=== PATIENT | female | born 1980 | race Caucasian/White ===

== ENCOUNTER 2022-06-07 13:45 | Emergency (ER) | payer OTHER, SELFPAY ==
[2022-06-07 14:26] VITALS: BP 131/77; PULSE 96; RESP 20; TEMP 36.8; O2SAT 100; BMI 25.4
[2022-06-07 15:47] VITALS: PULSE 80
--- NOTE | 2022-06-07 16:39 | ED_ITS ---
HPI - Extremity Injury (Upper) <Britt Sabillon PA-C - Last Filed: 06/07/22 17:03> General Chief Complaint: Extremity Injury, Upper Stated Complaint: rt wrist pain and swelling Time Seen by Provider: 06/07/22 15:12 Source: patient Mode of arrival: Ambulatory History of Present Illness HPI narrative: Patient is a 41-year-old female presenting for evaluation of swelling of her right forearm since yesterday. She notes that it started hurting 3 days ago upon waking with no changes to how it looked. She does not have any known exposures or bites. Two days ago, she noted increased swelling and increased pain just below her hand over her wrist. Denies fever or chills or red lines, or swelling in her armpits. Yesterday and today, she has noted that it seems to be improving. She says she has washed with soap and water. She denies allergies to medications. She does report a history of smoking, and denies illegal drug use. She states she currently does not have a PCP and she just moved here from [place]. Related Data Previous Rx's Medication Instructions Recorded sulfamethoxazole 800 1 tab PO BID 7 days #14 tabs 06/07/22 mg-trimethoprim 160 mg tablet (Bactrim DS) Allergies Allergy/AdvReac Type Severity Reaction Status Date / Time No Known Drug Allergies Allergy Verified 06/07/22 14:32 Review of Systems <Britt Sabillon PA-C - Last Filed: 06/07/22 17:03> Review of Systems Narrative: Per HPI Patient History <Britt Sabillon PA-C - Last Filed: 06/07/22 17:03> Social History Smoking Status: Current every day smoker Smoking Status: Current every day smoker tobacco type: cigarettes alcohol intake frequency: holidays/special occasions only Substance Use Type: marijuana Exam <Britt Sabillon PA-C - Last Filed: 06/07/22 17:03> Narrative Exam Narrative: GENERAL: 41 year old patient appears stated age. Well-developed patient, in no distress. HEAD: Atraumatic. Normocephalic. EYES: No scleral icterus. No injection or drainage. CARDIOVASCULAR: Regular rate and rhythm without murmurs, gallops, or rubs. RESPIRATORY: Clear to auscultation. Breath sounds equal bilaterally. No wheezes, rales, or rhonchi. EXTREMITIES: Edema over right lateral wrist, no fluctuance or induration noted. She is tender to palpation over areas of erythema. Erythema extends 3-1/2 cm distally with two barely raised areas roughly 1 cm across. There is no red line. 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 She has no pain with movement of her fingers. Right radial pulse is 2 . BACK: Nontender without deformity or crepitance. No flank tenderness. NEURO: AOx3. SKIN: see extremity Initial Vital Signs Initial Vital Signs: Vital Signs Temperature 98.2 F 06/07/22 14:26 Pulse Rate 96 H 06/07/22 14:26 Respiratory Rate 20 06/07/22 14:26 Blood Pressure 131/77 06/07/22 14:26 Pulse Oximetry 100 06/07/22 14:26 Oxygen Delivery Method 06/07/22 14:26 <DO Shameka Torres Last Filed: 06/07/22 17:48> Initial Vital Signs Initial Vital Signs: Vital Signs Temperature 98.2 F 06/07/22 14:26 Pulse Rate 96 H 06/07/22 14:26 Respiratory Rate 20 06/07/22 14:26 Blood Pressure 131/77 06/07/22 14:26 Pulse Oximetry 100 06/07/22 14:26 Oxygen Delivery Method 06/07/22 14:26 Course <Britt Sabillon PA-C - Last Filed: 06/07/22 17:03> Vital Signs Vital signs: Vital Signs - 8 hr 06/07/22 14:26 06/07/22 15:47 Temperature 98.2 F Pulse Rate 96 H Pulse Rate [Right Radial] 80 Respiratory Rate 20 Blood Pressure 131/77 Pulse Oximetry 100 Oxygen Delivery Method Room Air <DO Shameka Torres Last Filed: 06/07/22 17:48> Vital Signs Vital signs: Vital Signs - 8 hr 06/07/22 14:26 06/07/22 15:47 Temperature 98.2 F Pulse Rate 96 H Pulse Rate [Right Radial] 80 Respiratory Rate 20 Blood Pressure 131/77 Pulse Oximetry 100 Oxygen Delivery Method Room Air MDM - Extremity Injury (Upper) <Britt Sabillon PA-C - Last Filed: 06/07/22 17:03> [facility] Narrative Medical decision making narrative: Patient is a 41-year-old female presenting for signs of probable bacterial cellulitis over her right wrist. Systemically her vital signs are stable and she notes no fever or chills. She currently smokes but denies illegal drug use. She does not currently have a PCP. I recommend that she take antibiotics to treat this. I have prescribed Bactrim by mouth for 7 days. We discussed precautions for return for evaluation including worsening erythema, systemic symptoms such as fever chills, red lining or other concerning symptoms. I chose Bactrim for its coverage of MRSA organisms. Differentials include cellulitis, MRSA infection, spider bite. I recommend if possible she follow-up in primary care clinic for re-evaluation in a week to ensure infection is receding. Discharge Plan Departure Patient Disposition: Home Clinical Impression: Cellulitis of forearm, right Activity Restrictions/Additional Instructions: We discussed that your condition is likely due to a bacterial infection of the right wrist. We have printed a prescription for Bactrim for you to take twice a day for 7 days. We have discussed care for this area including washing with soap and water and monitoring for resolution of swelling and erythema. Please be re-evaluated for further treatment if swelling and erythema increases beyond current erythema and swelling, if a red line appears, or if fever or chills begin or if the function of your right hand is affected in any way. Prescriptions: New sulfamethoxazole-trimethoprim [Bactrim DS] 800-160 mg tablet 1 tab PO BID 7 Days Qty: 14 0RF Stand Alone Forms: Patient Portal/API <Mark Maharaj DO - Last Filed: 06/07/22 17:48> Cosign ED Attending Cosignature Attestation: Dr Maharaj Co-Sign Statement: I was available for consultation during this patient's emergency department visit. This chart is signed by myself for administrative purposes only. I did not have direct contact with this patient during this visit. They were seen independently by the APC.
== END 2022-06-07 16:52 | disposition home or self-care (01) ==
PROVIDERS: Emergency Provider Physician Assistant
DX: L03.113 Cellulitis of right upper limb (principal)
CPT/HCPCS: 99281

== ENCOUNTER 2022-07-17 11:47 | Emergency (ER) | payer OTHER, SELFPAY ==
[2022-07-17] VITALS (19 sets, daily range): BP systolic 98–140; BP diastolic 59–89; PULSE 93–119; RESP 14–24; TEMP 37.4; O2SAT 98–100; BMI 26.4
[2022-07-17 12:21] LABS: Add Manual Diff / Slide Review YES; Hematocrit 39.7 % (36-46); Hemoglobin 13.4 g/dL (12.0-16.0); Mean Corpuscular HGB Conc 33.8 % (30-36); Mean Corpuscular Hemoglobin 31.2 PG (26-34); Mean Corpuscular Volume 92.2 fL (80-100); Platelet Count 357 X10^3/uL (150-400); Red Cell Distribution Width 13.5 % (11.6-14.8); White Blood Cell Count 25.5 X10^3/uL (4.5-11.0)
[2022-07-17 12:29] LABS: Alanine Aminotransferase 50 IU/L (<35); Albumin 4.4 g/dL (3.5-5.0); Albumin Globulin Ratio 1.3 (1.0-2.8); Alkaline Phosphatase 98 U/L (38-126); Aspartate Aminotransferase 30 IU/L (14-36); Bilirubin Total 0.9 mg/dL (0.2-1.3); Blood Urea Nitrogen 8 mg/dL (7-17); Calcium 8.8 mg/dL (8.4-10.2); Carbon Dioxide 24 mmol/L (22-32); Chloride 103 mmol/L (98-107); Estimated Glomerular Filt Rate > 60 mL/min (>60); Globulin 3.3 g/dL (1.7-4.1); Glucose 102 mg/dL (70-100); HEMOLYSIS 15 (0-50); Lipase 49 U/L (23-300); Potassium 3.6 mmol/L (3.4-5.1); Sodium 135 mmol/L (137-145); Total Protein 7.7 g/dL (6.3-8.2)
[2022-07-17 12:41] LABS: Neutrophils Absolute Manual 22950 /uL (3000-5900); Total Cells Counted 100
[2022-07-17 12:42] LABS: RBC Morphology Normal Morphology
[2022-07-17 13:14] LABS: Lactate (Lactic Acid) 0.8 mmol/L (0.7-2.1)
--- NOTE | 2022-07-17 13:15 | DI.CT.S_ITS ---
PROCEDURE: CT ABDOMEN PELVIS W CON INDICATIONS: abd pain, had recent CT TECHNIQUE: After the administration of intravenous contrast, axial sections acquired from the lung bases to the pubic symphysis. Coronal and sagittal reformats were performed. For radiation dose reduction, the following was used: automated exposure control, adjustment of mA and/or kV according to patient size. COMPARISON: None. FINDINGS: Image quality: Excellent. Lung bases: Unremarkable. Heart: No significant findings. ABDOMEN: Liver: Unremarkable. Gallbladder: Unremarkable. Biliary ducts: Unremarkable. Pancreas: Unremarkable. Spleen: Unremarkable. Adrenal Glands: Unremarkable. Kidneys and Ureters: Unremarkable. Stomach and Bowel: Stomach, small bowel loops, and colon are unremarkable. Appendix is normal. Peritoneum: Significant fat stranding in the right lower quadrant. Ventral Wall: No hernias. Abdominal Nodes: No retroperitoneal or mesenteric adenopathy by size criteria. Vessels: Aorta and inferior vena cava are normal in size. PELVIS: Pelvic Organs: Right-sided corpus luteum. Bladder: Moderate wall thickening. Pelvic Nodes: No enlarged lymph nodes. Miscellaneous: No hernias are seen. Bones: Unremarkable. IMPRESSION: 1. Inflammatory changes in the right lower quadrant, centered in the adnexa. Normal appendix. A right-sided corpus luteum is present within this region. Pelvic inflammatory disease is not entirely excluded based on this appearance. Consider pelvic ultrasound. 2. Bladder wall thickening, which may indicate cystitis or be reactive. Dictated by: Marc Campa M.D. on 07/17/2022 at 14:45 Approved by: Marc Campa M.D. on 07/17/2022 at 14:55
--- NOTE | 2022-07-17 13:17 | PC.NURSE ---
Addendum entered by Tito Rock R.N. 07/17/22 13:41: Right wrist is slightly red, cool to the touch, with a small raised bump. No streaking. This is the site pt reports having the infection. Original Note: Pt reports recent relapse of meth use one month ago and recent infection due to injecting.
[2022-07-17] MEDS: KETOROLAC 30 MG/ML VIAL 15 MG IV (13:24)
[2022-07-17] MEDS: SODIUM CHLORIDE 0.9% 1,905.09 ML 635.03 ML IV (13:25)
[2022-07-17 13:31] LABS: Procalcitonin 0.33 ng/mL (<0.5)
[2022-07-17 13:36] LABS: Pregnancy Test Serum,Qual Negative (Negative)
--- NOTE | 2022-07-17 13:56 | ED.ABDPAIN ---
HPI - Abdominal Pain General Chief Complaint: Abdominal Pain Stated Complaint: t-14 abdominal pain/vaginal bleeding Time Seen by Provider: 07/17/22 13:05 Source: patient Mode of arrival: Ambulatory Limitations: no limitations History of Present Illness HPI narrative: This is a 41-year-old female with history of methamphetamine abuse, who presents with complaint of abdominal pain. Patient states she is been having generalized abdominal pain throughout for the past 1-2 weeks. She states been somewhat intermittent. She denies fevers or chills. She denies chest pain or shortness of breath. She denies nausea or vomiting. She states she has been constipated but did have a small bowel movement today. Patient states she is had some dysuria but describes it sometimes more as pain in her upper abdomen when she bears down to urinate, she denies frequency or urgency. She states she had her menses the beginning of July. She had some additional vaginal bleeding the last couple days which he states has been more light and spotting with some small clots. She denies any new discharge or odor. Patient states no black or bloody stools appreciated. She has had a prior , she is had prior tubal ligation. She denies other surgeries. She denies any prescription medications. She does use tobacco daily. She denies alcohol. She does state she used methamphetamine she has not injected on states she had an infection in her right wrist where she injected she was seen here got oral antibiotics and it improved there still a slight lump but that the redness has gone away and it is no longer tender or painful. Related Data Allergies Allergy/AdvReac Type Severity Reaction Status Date / Time No Known Drug Allergies Allergy Verified 07/17/22 11:53 Review of Systems Review of Systems ROS Unobtainable: All systems reviewed & are unremarkable except as noted in HPI and below Patient History Social History Smoking Status: Current every day smoker Smoking Status: Current every day smoker tobacco type: cigarettes alcohol intake frequency: holidays/special occasions only Substance Use Type: marijuana Exam Narrative Exam Narrative: GEN: Nontoxic-appearing female, alert and oriented x 3, patient appears to be in mild distress. HEENT: Atraumatic, pupils are equal round reactive to light, extraocular movements are intact, nares are clear, Throat is clear without any exudates, erythema, tonsillar enlargement or uvular deviation HEART: Slightly tachycardic but Regular rate and rhythm without murmur, clicks, rubs. pulses are equal in upper and lower extremities LUNGS:Lungs clear to auscultation, no wheezes, rales, crackles, chest moves symmetrically, no tachypnea accessory muscle use ABD:bowel sounds normal, soft, generalized tenderness, no guarding, rebound, rigidity, no masses noted, no hepatosplenomegaly, slightly distended. :No CVA tenderness. Female: external vaginal examl normal, scant red vaginal bleeding, no discharge, no cervical motion tenderness, normal speculum exam, no adnexal tenderness/mass. Bimanual exam patient has tenderness suprapubically but not enlarged uterus. Non-gravid. MSCL: Non-tender, no muscle atrophy, muscles strength 5/5 upper and lower extremities, full range of motion NEURO:CN 2-12 intact, sensation normal SKIN: No rash, erythema or other skin changes. Patient showed me the site of her prior infection was there is a slight fullness of the skin but it is nontender no erythema, not indurated or fluctuant. Initial Vital Signs Initial Vital Signs: Vital Signs Temperature 99.3 F 07/17/22 11:53 Pulse Rate 119 H 07/17/22 11:53 Respiratory Rate 17 07/17/22 11:53 Blood Pressure 118/70 07/17/22 11:53 Pulse Oximetry 99 07/17/22 11:53 Oxygen Delivery Method Room Air 07/17/22 11:53 Course Orders Ordered: Discontinued Medications Azithromycin (Azithromycin 250 Mg Tablet) 1,000 mg PO NOW ONE Stop: 07/17/22 17:13 Last Admin: 07/17/22 17:18 Dose: 1,000 mg Documented By: JOHN Sodium Chloride (Normal Saline 0.9%) 1,905.09 mls @ 635.03 mls/hr 30 ml/kg infuse over 3 hr (1905.09 ml) IV NOW ONE Stop: 07/17/22 16:13 Last Infusion: 07/17/22 15:59 Dose: 0 mls/hr Documented By: Admin: 07/17/22 13:25 Dose: 635.03 mls/hr Documented By: JOHN Ceftriaxone Sodium 2,000 mg/ (Sodium Chloride) 100 mls @ 200 mls/hr IV NOW ONE Stop: 07/17/22 15:37 Last Infusion: 07/17/22 16:21 Dose: 0 mls/hr Documented By: Admin: 07/17/22 15:43 Dose: 200 mls/hr Documented By: OJHN Ceftriaxone Sodium 1,000 mg/ (Sodium Chloride) 100 mls @ 200 mls/hr IV NOW ONE Stop: 07/17/22 17:13 Last Admin: 07/17/22 17:16 Dose: Not Given Documented By: JOHN Ketorolac Tromethamine (Ketorolac 30 Mg/Ml Vial) 15 mg IV NOW ONE Stop: 07/17/22 13:15 Last Admin: 07/17/22 13:24 Dose: 15 mg Documented By: JOHN Ondansetron HCl (Ondansetron 4 Mg/2 Ml Inj) 4 mg IV NOW PRN PRN Reason: Nausea And Vomiting Vital Signs Vital signs: Vital Signs - 8 hr 07/17/22 11:53 07/17/22 12:31 07/17/22 13:00 Temperature 99.3 F Pulse Rate 119 H 117 H 119 H Respiratory Rate 17 Blood Pressure 118/70 Pulse Oximetry 99 99 100 Oxygen Delivery Method Room Air 07/17/22 13:01 07/17/22 13:01 07/17/22 13:30 Temperature Pulse Rate 105 H 110 H Respiratory Rate 17 19 Blood Pressure 114/74 Pulse Oximetry 99 100 Oxygen Delivery Method 07/17/22 13:36 07/17/22 13:36 07/17/22 13:45 Temperature Pulse Rate 109 H Respiratory Rate 14 Blood Pressure 122/78 116/75 Pulse Oximetry 99 Oxygen Delivery Method 07/17/22 13:45 07/17/22 14:00 07/17/22 14:00 Temperature Pulse Rate 110 H 103 H Respiratory Rate Blood Pressure 111/66 Pulse Oximetry 99 100 Oxygen Delivery Method 07/17/22 14:30 07/17/22 14:30 07/17/22 14:45 Temperature Pulse Rate 102 H Respiratory Rate 24 Blood Pressure 130/79 132/81 Pulse Oximetry 100 Oxygen Delivery Method 07/17/22 14:45 07/17/22 15:00 07/17/22 15:00 Temperature Pulse Rate 97 H 94 H Respiratory Rate 24 18 Blood Pressure 140/89 Pulse Oximetry 100 100 Oxygen Delivery Method 07/17/22 15:15 07/17/22 15:15 07/17/22 15:30 Temperature Pulse Rate 93 H Respiratory Rate 18 Blood Pressure 137/86 139/86 Pulse Oximetry 100 Oxygen Delivery Method 07/17/22 15:30 07/17/22 15:50 07/17/22 15:50 Temperature Pulse Rate 97 H 103 H Respiratory Rate 22 24 Blood Pressure 117/72 Pulse Oximetry 100 99 Oxygen Delivery Method 07/17/22 16:00 07/17/22 16:00 07/17/22 16:15 Temperature Pulse Rate 101 H 103 H Respiratory Rate 20 22 Blood Pressure 107/68 Pulse Oximetry 98 Oxygen Delivery Method 07/17/22 16:15 07/17/22 16:30 07/17/22 16:30 Temperature Pulse Rate 93 H Respiratory Rate 15 Blood Pressure 109/72 98/59 L Pulse Oximetry 99 Oxygen Delivery Method 07/17/22 16:38 07/17/22 16:38 07/17/22 16:45 Temperature Pulse Rate 96 H Respiratory Rate 19 Blood Pressure 106/67 119/75 Pulse Oximetry 99 Oxygen Delivery Method 07/17/22 16:45 Temperature Pulse Rate 93 H Respiratory Rate 18 Blood Pressure Pulse Oximetry 99 Oxygen Delivery Method MDM - Abdominal Pain Lab Data 07/17/22 12:12 07/17/22 12:12 Labs: Lab Results 07/17/22 07/17/22 07/17/22 Range/Units 12:12 12:12 12:12 WBC 25.5 H (4.5-11.0) X10^3/uL RBC 4.30 (4.0-5.2) X10^6/uL Hgb 13.4 (12.0-16.0) g/dL Hct 39.7 (36-46) % MCV 92.2 (80-100) fL MCH 31.2 (26-34) PG MCHC 33.8 (30-36) % RDW 13.5 (11.6-14.8) % Plt Count 357 (150-400) X10^3/uL Neut % (Auto) Not Reportable Lymph % (Auto) Not Reportable Leslie % (Auto) Not Reportable Eos % (Auto) Not Reportable Baso % (Auto) Not Reportable Lymph # (Auto) Not Reportable Leslie # (Auto) Not Reportable Baso # (Auto) Not Reportable Total Counted 100 Seg Neutrophils % 85.0 H (38-70) % Band Neutrophils % 5.0 (3-7) % Lymphocytes % (Manual) 7.0 L (25-45) % Monocytes % (Manual) 3.0 (2-11) % Neutrophils # (Manual) 64010 H (6623-6391) /uL RBC Morphology Normal morphology Sodium 135 L (137-145) mmol/L Potassium 3.6 (3.4-5.1) mmol/L Chloride 103 (98-107) mmol/L Carbon Dioxide 24 (22-32) mmol/L BUN 8 (7-17) mg/dL Creatinine 0.42 L (0.52-1.04) mg/dL Estimated GFR > 60 (>60) mL/min BUN/Creatinine Ratio 19.0 (6-22) Glucose 102 H (70-100) mg/dL Lactate 0.8 (0.7-2.1) mmol/L Calcium 8.8 (8.4-10.2) mg/dL Total Bilirubin 0.9 (0.2-1.3) mg/dL AST 30 (14-36) IU/L ALT 50 H (<35) IU/L Alkaline Phosphatase 98 (38-126) U/L Total Protein 7.7 (6.3-8.2) g/dL Albumin 4.4 (3.5-5.0) g/dL Globulin 3.3 (1.7-4.1) g/dL Albumin/Globulin Ratio 1.3 (1.0-2.8) Lipase 49 (23-300) U/L Procalcitonin (<0.5) ng/mL Serum , Qual (Negative) Urine RBC (0-5/HPF) Urine WBC (0-5/HPF) Ur Squamous Epith Cells (0-5/HPF) Urine Bacteria (None) Ur Culture Indicated? 07/17/22 07/17/22 07/17/22 Range/Units 12:12 12:12 15:49 WBC (4.5-11.0) X10^3/uL RBC (4.0-5.2) X10^6/uL Hgb (12.0-16.0) g/dL Hct (36-46) % MCV (80-100) fL MCH (26-34) PG MCHC (30-36) % RDW (11.6-14.8) % Plt Count (150-400) X10^3/uL Neut % (Auto) Lymph % (Auto) Leslie % (Auto) Eos % (Auto) Baso % (Auto) Lymph # (Auto) Leslie # (Auto) Baso # (Auto) Total Counted Seg Neutrophils % (38-70) % Band Neutrophils % (3-7) % Lymphocytes % (Manual) (25-45) % Monocytes % (Manual) (2-11) % Neutrophils # (Manual) (1704-5411) /uL RBC Morphology Sodium (137-145) mmol/L Potassium (3.4-5.1) mmol/L Chloride (98-107) mmol/L Carbon Dioxide (22-32) mmol/L BUN (7-17) mg/dL Creatinine (0.52-1.04) mg/dL Estimated GFR (>60) mL/min BUN/Creatinine Ratio (6-22) Glucose (70-100) mg/dL Lactate (0.7-2.1) mmol/L Calcium (8.4-10.2) mg/dL Total Bilirubin (0.2-1.3) mg/dL AST (14-36) IU/L ALT (<35) IU/L Alkaline Phosphatase (38-126) U/L Total Protein (6.3-8.2) g/dL Albumin (3.5-5.0) g/dL Globulin (1.7-4.1) g/dL Albumin/Globulin Ratio (1.0-2.8) Lipase (23-300) U/L Procalcitonin 0.33 (<0.5) ng/mL Serum , Qual Negative (Negative) Urine RBC 1-5/hpf (0-5/HPF) Urine WBC 1-5/hpf (0-5/HPF) Ur Squamous Epith Cells 1-5 /hpf (0-5/HPF) Urine Bacteria None seen (None) Ur Culture Indicated? Cult not indicated Point of care testing: Urine Dip Bedside Urine Glucose Negative Bedside Urine Bilirubin - Negative Bedside Urine Ketone +/- 5 Urine Specific Blodgett 1.005 Bedside Urine Occult Blood ++ Bedside Urine pH 6.0 Bedside Urine Protein - Negative Bedside Urine Urobilinogen - Negative Bedside Urine Nitrite - Negative Bedside Urine Leukocytes - Negative Esterase Imaging Data CT scan - abdomen/pelvis: Radiologist's Impression: Close Abdomen/Pelvis CT (Signed) Marc Campa - 07/17/22 Launch?[address] [address] [address] Scan Report Signed Patient: Terrie Leon MR#: [id number] : 1980 Acct:[id number] Age/Sex: 41 / F Date of Service: 07/17/22 Loc: ED Accession Number: [id number] ?? Procedure: CT abdomen pelvis w con Ordering Provider: Miranda Vincent D.O. PROCEDURE:? CT ABDOMEN PELVIS W CON ? INDICATIONS:? abd pain, had recent CT ? TECHNIQUE:? After the administration of intravenous contrast, axial sections acquired from the lung bases to the pubic symphysis.? Coronal and sagittal reformats were performed.? For radiation dose reduction, the following was used:? automated exposure control, adjustment of mA and/or kV according to patient size.? ? COMPARISON:? None. ? FINDINGS:? Image quality:? Excellent.? ? Lung bases:? Unremarkable. Heart:? No significant findings. ? ABDOMEN: Liver:? Unremarkable.? ? Gallbladder:? Unremarkable.? ? Biliary ducts:? Unremarkable.? ? Pancreas:? Unremarkable.? ? Spleen:? Unremarkable.? ? Adrenal Glands:? Unremarkable.? ? Kidneys and Ureters:? Unremarkable.? ? ? Stomach and Bowel:? Stomach, small bowel loops, and colon are unremarkable.? Appendix is normal. Peritoneum:? Significant fat stranding in the right lower quadrant. ? Ventral Wall: ? No hernias.? Abdominal Nodes:? No retroperitoneal or mesenteric adenopathy by size criteria.? Vessels:? Aorta and inferior vena cava are normal in size.? ? PELVIS: Pelvic Organs:? Right-sided corpus luteum.? ? Bladder:? Moderate wall thickening. Pelvic Nodes: No enlarged lymph nodes.? Miscellaneous: No hernias are seen. ? ? ? Bones:? Unremarkable.? IMPRESSION:? 1. Inflammatory changes in the right lower quadrant, centered in the adnexa.? Normal appendix.? A right-sided corpus luteum is present within this region.? Pelvic inflammatory disease is not entirely excluded based on this appearance.? Consider pelvic ultrasound. 2. Bladder wall thickening, which may indicate cystitis or be reactive.? ? Dictated by: Marc Campa M.D. on 07/17/2022 at 14:45 ? ? Approved by: Marc Campa M.D. on 07/17/2022 at 14:55?? [facility] Narrative Medical decision making narrative: This is a 41-year-old female who presents with complaint of generalized abdominal pain intermittently for the past 2 weeks. She is been afebrile no nausea or vomiting. She does note some recent dysuria and vaginal bleeding. Patient has generalized abdominal pain on examination not really localized. She is slightly distended. She does have risk factors of prior , tubal ligation and uses injection drugs including methamphetamine. She is tachycardic, not hypotensive not febrile 99% room air. She would a workup at [facility] on 07/06/2022 for abdominal pain and at that time had changes consistent with ileus no obstruction. She was tachycardic during her stay up to 130. She would a white count of 20 with potassium of 3.3, glucose of 111 bilirubin was normal with an AST of 49 and otherwise negative LFTs and CMP. Serum HCG was negative at that time. UA showed 6-10 wbc's but moderate squamous epithelials and was positive for amphetamines. Patient had dose of Toradol here which has been helpful for her pain has not resolved it. She is receiving a 30 cc/kilos bolus although tachycardia could be secondary to recent amphetamine use as well. Workup today is remarkable for leukocytosis, has trended upwards. Sodium 135 normal creatinine electrolytes glucose is 102 with an ALT of 50 AST total bili and lipase are negative. Serum is negative with a negative procalcitonin. Attempting to get urine sample and patient is receiving fluids. CT abdomen pelvis was obtained, plan for pelvic exam and possible ultrasound if CT is negative. CT shows some inflammation around the adnexa appendix appears to be normal. Patient also has some changes consistent with cystitis. Ultrasound shows possible hemorrhagic cyst no signs of torsion. Patient does not have changes consistent with tubo-ovarian abscess. Suspect patient's pain is secondary to irritation for blood in the pelvis. UA shows no signs of infection. Pelvic exam was performed, cultures were obtained. Patient does not have a lot of discharge but does note that she is been sexually active recently without protection. Discussed we can wait for cultures are go and treat she does have a white count she is tender suprapubically although not a lot of cervical tenderness. Patient elects for treatment she prefers medication to be given here she is not sure she has enough money for outpatient antibiotics. We will cover with Rocephin and azithromycin. Discharge Plan Departure Patient Disposition: Home Clinical Impression: Ovarian cyst rupture, Cervicitis Instructions: DI for Ovarian Cyst Activity Restrictions/Additional Instructions: Your workup today does show a ruptured, presumed hemorrhagic ovarian cyst. This can be causing her pain today. We did cover you for bacterial infections/cervicitis. Your cultures are pending if these show that there is antibiotics do not completely cover you you will be contacted for additional medication. Please return for fevers, new or worsening abdominal back or flank pain, persistent vomiting, passing out, black or bloody stools or other new or concerning changes. Stand Alone Forms: Patient Portal/API
--- NOTE | 2022-07-17 15:35 | DI.US.S_ITS ---
PROCEDURE: US PELVIC COMPLETE INDICATIONS: pelvic pain TECHNIQUE: Real-time scanning was performed of the pelvic organs, with image documentation. Additional endovaginal scanning was necessary due to incomplete visualization of the adnexal and endometrial structures by transabdominal scanning. COMPARISON: [facility], CT, CT ABDOMEN PELVIS W CON, 07/17/2022, 14:19. FINDINGS: Uterus: Uterus is anteverted and normal in size at 4.1 x 6.6 x 8.9 cm. The myometrium is homogeneous. The endometrium measures 4.6 mm combined thickness. No fibroid is found. Ovaries: The right ovary measures 2.7 x 3.1 x 2.8 cm, with a calculated ovarian volume of 12.1 cc. The right ovary contains a presumed hemorrhagic ovarian cyst measuring approximately 2.7 x 2.8 x 3.1 cm in maximal dimensions. There is no concern for presence of ovarian torsion. The left ovary could not be seen due to bowel gas. Less than 12 follicles can be seen in right ovary ovary. No adnexal masses are seen. Other: No pathologic free abdominal or pelvic fluid. IMPRESSION: Nonvisualization of the left ovary due to bowel gas. Presumed hemorrhagic ovarian cyst right ovary, without suspicion for ovarian torsion superimposed. Normal appearing uterus and endometrial lining. We strive to produce accurate, complete, and clear reports of imaging services. To assist us in improving patient care, this report was composed using standard report templates and voice recognition software. Therefore, it may contain abnormal punctuation, insertions and/or omissions. Occasional wrong-word or sound-alike substitutions may occur. Though we review the report and make efforts to correct it, we do recommend that the report be read carefully in proper context to recognize any text inaccuracies. Dictated by: Singh Downing M.D. on 07/17/2022 at 16:34 Approved by: Singh Downing M.D. on 07/17/2022 at 16:38
[2022-07-17] MEDS: cefTRIAXone 2,000 MG in SODIUM CHLORIDE 0.9% 100 ML 200 MG IV (15:43)
[2022-07-17 16:14] LABS: Bacteria Urine None Seen; Culture Indicated Urine Cult Not Indicated; RBC Urine 1-5/HPF (0-5/HPF); Squamous Epithelial Cell Urine 1-5 /HPF (0-5/HPF); WBC Urine 1-5/HPF (0-5/HPF)
--- NOTE | 2022-07-17 16:20 | CM.SWNOTE ---
[employer] ED Note Patient is 41 y/o female who presents to ED due to concern for abdominal pain and vaginal bleeding. Patient does not have PCP and patient is planning to establish Medicaid state insurance soon. Per RN, patient endorses current THC use and hx of methamphetamine use a month ago. E[employer] DES[employer]ER enters room to meet with patient, patient initially presents as reluctant to meet with E[employer]S DES[employer]ER, but ELECT[employer]ICAL CONTR[employer]S DESIGNER offers resources if needed and patient agrees to meet. 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 Patient endorses she plans to continue to reside in [facility] and would like to establish care with PCP [place]. E[employer] DES[employer]ER asks about substance use, patient denies use, when asked further patient endorses THC use. Patient denies Opioid and fentanyl use. Patient denies interest in any [facility] outpatient services. E[employer]ER asks if patient would like list of PCPs that accept Medicaid and patient endorses yes. Patient denies any further needs from [employer]. Plan: ED provider to further medically evaluate patient, patient to d/c to home with family friend upon medical clearance. LADONNA BurtonSW
[2022-07-17] MEDS: AZITHROMYCIN 250 MG TABLET 1000 MG PO (17:18)
[2022-07-22 05:45] LABS: Chlamydia trachomatis Negative (Negative); Mycoplasma genitalium Positive (Negative); Neisseria gonorrhoeae Positive (Negative)
== END 2022-07-17 17:30 | disposition home or self-care (01) ==
PROVIDERS: Emergency Provider Emergency Medicine
DX: N83.201 Unspecified ovarian cyst, right side (principal); N72 Inflammatory disease of cervix uteri; R00.0 Tachycardia, unspecified
CPT/HCPCS: 36415; 74177; 76830; 76856; 80053; 81003; 81015; 83605; 83690; 84145; 84703; 85007; 85025; 87040; 87070; 87147; 87205; 87210; 87491; 87563; 87591; 93976; 96365; 96375; 99284; 99285; J0696; J1885; Q9967

== ENCOUNTER 2023-05-10 21:13 | Emergency (ER) | payer OTHER, MEDICAID, SELFPAY ==
[2023-05-10 21:17] VITALS: BP 127/84; PULSE 103; RESP 18; TEMP 37.2; O2SAT 98; BMI 25.4
--- NOTE | 2023-05-10 21:25 | DI.RAD.S_ITS ---
PROCEDURE: XR HAND RT MIN 3V INDICATIONS: fell on manolo nails and injured right hand TECHNIQUE: 3 views of the hand(s) acquired. COMPARISON: None. FINDINGS: Bones: No displaced fracture or dislocation. Soft tissues: No radiopaque foreign bodies. IMPRESSION: No acute osseous abnormality. No radiopaque foreign bodies. If there is high concern for occult injury, consider repeat radiography or cross-sectional imaging. Dictated by: Jesse Urrutia M.D. on 05/10/2023 at 21:48 Approved by: Jesse Urrutia M.D. on 05/10/2023 at 21:49
[2023-05-10] MEDS: TET,DIPH,PERTUSS(ACELL),VAC/PF 0.5 ML SYRINGE IM (23:10)
--- NOTE | 2023-05-10 23:13 | PC.NURSE ---
2 puncture wounds to the right palm, pt states she fell onto nails on a board no drainage from the wounds noted, no redness or swelling
--- NOTE | 2023-05-10 23:21 | ED_ITS ---
HPI - Skin/Abscess/Foreign Bdy General Chief complaint: Skin/Abscess/Foreign Body Stated complaint: Right hand injury Time Seen by Provider: 05/10/23 23:21 Source: patient Mode of arrival: Ambulatory Limitations: no limitations History of Present Illness HPI narrative: Patient is a 42-year-old female who presents today with resting nail puncture wound to her right hand. She reports that she slipped on something in her house she put her hand down to catch her and her hand landed right in her board with to manolo nails. She says it went pretty sure she had a pull it out. Her tetanus is not up-to-date but she has been given a tetanus shot already. No numbness tingling or weakness. She is right-hand dominant. She has full range of motion of all fingers Related Data Previous Rx's Medication Instructions Recorded cephalexin 500 mg capsule 500 mg PO QID #28 caps 05/10/23 Allergies Allergy/AdvReac Type Severity Reaction Status Date / Time No Known Drug Allergies Allergy Verified 07/17/22 11:53 Patient History Social History Smoking Status: Current every day smoker Smoking Status: Current every day smoker tobacco type: cigarettes alcohol intake frequency: holidays/special occasions only Substance Use Type: marijuana Exam Initial Vital Signs Initial Vital Signs: Vital Signs Temperature 99 F 05/10/23 21:17 Pulse Rate 103 H 05/10/23 21:17 Respiratory Rate 18 05/10/23 21:17 Blood Pressure 127/84 05/10/23 21:17 Pulse Oximetry 98 05/10/23 21:17 Oxygen Delivery Method Room Air 05/10/23 21:17 GENERAL: Well-appearing, well-nourished and in no acute distress. CARDIOVASCULAR: peripheral pulses in tact, cap refill <2 sec RESPIRATORY: No respiratory distress, speaks in full sentences without difficul ty EXTREMITIES: Normal range of motion, no clubbing or edema. Neurovascularly intact Hand good flexion extension add an abduction of all fingers and right hand NEUROLOGICAL: Cranial nerves II through XII grossly intact. Normal gait and speech. SKIN: Right-hand 2 puncture wounds on palmar side, 1 at base of 4th finger and base of 5th finger the 4th finger is certainly deeper Course Orders Ordered: ED Orders 05/10/23 21:25 XR hand RT min 3V Stat Discontinued Medications Diphtheria/Tetanus/Acell Pertussis (Tet,Diph,Pertuss(Acell),Vac/Pf 0.5 Ml Syringe) 0.5 ml IM .ONCE ONE Stop: 05/10/23 21:23 Last Admin: 05/10/23 23:10 Dose: 0.5 ml Documented By: DEISY Vital Signs Vital signs: Vital Signs - 8 hr 05/10/23 21:17 Temperature 99 F Pulse Rate 103 H Respiratory Rate 18 Blood Pressure 127/84 Pulse Oximetry 98 Oxygen Delivery Method Room Air MDM - Skin/Abscess/Foreign Bdy Imaging Data Extremity x-ray #1: Radiologist's Impression: PROCEDURE: XR HAND RT MIN 3V INDICATIONS: fell on manolo nails and injured right hand TECHNIQUE: 3 views of the hand(s) acquired. COMPARISON: None. FINDINGS: Bones: No displaced fracture or dislocation. Soft tissues: No radiopaque foreign bodies. IMPRESSION: No acute osseous abnormality. No radiopaque foreign bodies. If there is high concern for occult injury, consider repeat radiography or cross-sectional imaging. Dictated by: Jesse Urrutia M.D. on 05/10/2023 at 21:48 Approved by: Jesse Urrutia M.D. on 05/10/2023 at 21:49 [facility] Narrative Medical decision making narrative: Patient well-appearing 42-year-old female who presents with puncture wound right hand. On palmar side. She has no evidence of nerve or tendon damage. She is given tetanus shot. This is at risk of becoming a flexor tendon synovitis however no evidence of this yet. Will start her on antibiotics. Discussed keeping it clean and dry. X-ray is negative for foreign body. Discharge Plan Departure Patient Disposition: Home Clinical Impression: Puncture wound of hand, right Instructions: DI for Puncture Wound Activity Restrictions/Additional Instructions: *You have been diagnosed with right hand puncture wound *What to do: At this time please keep clean and dry with soap and water. Apply Neosporin 1-2 times daily. Please monitor for any worsening infection *Continue to take medications as directed Tylenol Motrin as needed Keflex 500 mg 4 times a day for 7 days *Follow up with your primary care provider in 2-3 days or call [phone] *Return to ER if you should have increasing redness swelling finger pain decreased range of motion fever or any new, worsening or concerning symptoms Prescriptions: New cephalexin 500 mg capsule 500 mg PO QID Qty: 28 0RF Stand Alone Forms: Patient Portal/API
== END 2023-05-10 23:34 | disposition home or self-care (01) ==
PROVIDERS: Emergency Provider Emergency Medicine
DX: S61.431A Puncture wound without foreign body of right hand, initial encounter (principal); W45.0XXA Nail entering through skin, initial encounter; Z23 Encounter for immunization
CPT/HCPCS: 73130; 90471; 99283; 90715